=== PATIENT | female | born 1940 | race Caucasian/White ===

== ENCOUNTER 2018-12-27 09:20 | Emergency (ER) | payer MEDICARE, OTHER ==
[~2018-12-27] VITALS: Ht 152.4 cm; Wt 56.4 kg
[~2018-12-27 09:20] MED LIST: ACET500C5 PO; IBUP-1561 PO; MECL12.574 PO; ONDA4TAB14 PO
[2018-12-27 09:27] VITALS: BP 146/68; PULSE 75; RESP 18; Ht 152.4 cm; Wt 56.4 kg
== END 2018-12-27 12:32 | disposition home or self-care (01) ==
LOC: FTE 09:20
DX: H81.10 Benign paroxysmal vertigo, unspecified ear (principal); I10 Essential (primary) hypertension; E11.9 Type 2 diabetes mellitus without complications
CPT/HCPCS: 70450; 81003